=== PATIENT | female | born 1975 | race Two or more races ===

== ENCOUNTER 2025-01-03 23:04 | Emergency (ER) | payer OTHER, SELFPAY ==
[2025-01-03 23:30] VITALS: BP 138/67; PULSE 78; RESP 18; TEMP 36.8; O2SAT 99; BMI 24.1
--- OUTSIDE RECORDS SUMMARY | 2025-01-04 00:38 | XMS_ITS | Clinical Summary ---
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 Name Role Phone Unavailable Primary Care Provider Unavailabl e Allergies No known active allergies Medications No known medications Active Problems No known active problems Social History Tobacco Use Types Packs/Day Years Used Date Smoking Tobacco: Never Assessed Comments Unknown Sex and Gender Information Value Date Recorded Sex Assigned at Not on file Legal Sex Female 10:03 AM EST Gender Identity Not on file Sexual Orientation Not on file Plan of Treatment Health Maintenance Due Date Last Done Comments HIV SCREENING 1976 HEPATITIS C SCREENING 1994 HEPATITIS B VACCINE (1 of 3 - 19+ 3-dose series) 11/14/1995 TDAP/TD VACCINE 1998 MAMMOGRAM 2016 COLONOSCOPY 2021 COLORECTAL CANCER SCREENING 2021 FIT-DNA 2021 iFOBT 2021 PAP SMEAR/CYTOLOGY ALONE 07/12/2022 07/12/2019 COVID VACCINE ( season) 2024 04/23/2021, 10/02/2020, 09/04/2020 CERVICAL CANCER SCREENING 07/12/2024 PAP SMEAR/CYTOLOGY + HPV CO-TESTING 07/12/2024 07/12/2019 INFLUENZA VACCINE (#1) 2025 , 04/02/2020, 03/30/2018, Additional history exists ZOSTER (SHINGRIX) VACCINE (1 of 2) 2026 HUMAN PAPILLOMA VIRUS (HPV) VACCINE Aged Out No longer eligible based on patient's age to complete this topic PNEUMOCOCCAL VACCINE Aged Out No long er eligible based on patient's age to complete this topic Additional Source Comments Any HIV related-infromation that has been disclosed to you is from confidential records which are protected by state law. State law prohibits you from making any further disclosure of this HIV-related information without the specific written consent of the person to whom it pertains, or as otherwise permitted by law. Any unauthorized further disclosure in violation of state law may result in a fine or mcfp sentence or both. A general authorization for the release of medical or other informationisNOT sufficient authorization for further disclosure.[facility]
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
[2025-01-04 02:15] VITALS: BP 111/74; PULSE 76; RESP 15; TEMP 36.7; O2SAT 96
== END 2025-01-04 03:00 | disposition home or self-care (01) ==
PROVIDERS: Emergency Provider Emergency Medicine
DX: M79.18 Myalgia, other site (principal); V49.50XA Passenger injured in collision with unspecified motor vehicles in traffic accident, initial encounter; Y93.9 Activity, unspecified; Y92.9 Unspecified place or not applicable; Y99.9 Unspecified external cause status
CPT/HCPCS: 99283